=== PATIENT | male | born 1960 ===

== ENCOUNTER → 2021-10-25 16:38 | Outpatient (CLI) | payer BC, SELFPAY ==
--- NOTE | ~2021-10-25 | MR_ITS ---
EXAMINATION: MR knee LT wo con DATE: 10/25/2021 17:19 INDICATION: Left knee pain TECHNIQUE: Magnetic resonance imaging (MRI) of the left knee was performed without intravenous contra st. Sequences included coronal PD-weighted FSE, coronal PD-weighted FS FSE, sagittal T2-weighted FSE , sagittal PD-weighted FS FSE and axial PD weighted fat saturated FSE. COMPARISON: None. FINDINGS: Medial compartment: Very small radial tear versus fraying along the inner most free edge of the posterior horn of the med ial meniscus. Deep chondral ulceration and fissuring with mild underlying subarticular edema at the c entral weightbearing medial femoral condyle. Lateral compartment: Lateral meniscus is normal. Small deep chondral fissure at the posterior medial aspect of the lateral tibial plateau. Normal cartilage along the weightbearing lateral femoral condyle. Patellofemoral compartment: Deep chondral fissuring without degenerative subchondral changes at the medial patellar facet. Shallo w chondral surface regularity along the apical ridge. Trochlear cartilage is normal. Ligaments and tendons: Anterior and posterior cruciate ligaments are normal. There is thickening of the medial patellofemora l retinaculum along its confluence with the anterior margin of the normal-appearing medial collateral ligament with mild overlying soft tissue edema which suggests possible partial tear or scarring rela luz to prior tear. The extensor mechanism is otherwise normal. The fibular collateral ligament comple x is normal. The visualized medial and lateral hamstring tendons as well as the iliotibial band are n ormal. Fluid: Small to moderate-sized left knee joint effusion with mild synovitis at the suprapatellar pouch. Supr apatellar plical band is present. No loose osteochondral bodies identified. There is small amount of fluid in the prepatellar bursa consistent with mild bursitis. Osseous/other: Normal marrow signal aside from the previous noted mild subarticular edema-like signal change. No fra cture or pathologic marrow replacing process. IMPRESSION: 1. Very small radial tear versus fraying along the inner free edge of the posterior horn of the media l meniscus. 2. 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 3. Mild thickening of the medial side of the medial patellofemoral retinaculum with some overlying so ft tissue edema which could represent a more recent partial tear or more likely scarring related to c hronic injury with coincidental overlying soft tissue edema. 4. Mild prepatellar bursitis. Reviewed, dictated and finalized at location A. IMPRESSION: 1. Very small radial tear versus fraying along the inner free edge of the poste rior horn of the medial meniscus. 2. Mild tricompartmental osteoarthritis with extensive high-grade chondral [place] along the central weightbearing medial femoral condyle, single small deep c hondral fissure at the lateral tibial plateau and more extensive deep fissuring at the medial patellar facet. 3. Mild thickening of the medial side of the medial patellofemoral retinaculum with some overlying soft tissue edema which could represent a more recent parti al tear or more likely scarring related to chronic injury with coincidental ove rlying soft tissue edema. 4. Mild prepatellar bursitis.
== END ==
PROVIDERS: PCP Internal Medicine; Visit Provider Orthopaedic Surgery
DX: M71.562 Other bursitis, not elsewhere classified, left knee (principal); M17.12 Unilateral primary osteoarthritis, left knee; S83.242A Other tear of medial meniscus, current injury, left knee, initial encounter; X58.XXXA Exposure to other specified factors, initial encounter
CPT/HCPCS: 73721